=== PATIENT | male | born 1990 | race Caucasian/White ===

== ENCOUNTER → 2016-12-16 | Outpatient (CLI) | payer OTHER | END | disposition home or self-care (01) | LOC: C.LAB 01:36 | DX: Z02.83 Encounter for blood-alcohol and blood-drug test (principal) ==

== ENCOUNTER 2018-10-25 07:08 | Inpatient (IN) ==
[2018-10-25 07:49] LABS: Basophils # (auto) 0.02 K/uL (0-0.2); Basophils % (auto) 0.3 %; Eosinophils % (auto) 1.5 %; Hematocrit (blood only) 44.9 % (42-52); Immature Granulocytes # (auto) 0.01 K/uL (0.00-0.02); Immature Granulocytes % (auto) 0.1 %; Lymphocytes # (auto) 1.76 K/uL (1.2-3.4); Lymphocytes % (auto) 25.6 %; Mean Corpuscular Hgb Conc 35.6 g/dL (32-36); Mean Corpuscular Volume 91.1 fL (80-100); Mean Platelet Volume 9.6 fL (7.4-10.4); Monocytes # (auto) 1.04 K/uL (0.11-0.59); Monocytes % (auto) 15.1 %; Neutrophils # (auto) 3.95 K/uL (1.4-6.5); Neutrophils % (auto) 57.4 %; Platelet Count 213 K/uL (130-400); RDW Coefficient of Variation 11.8 % (11.5-14.5); RDW Standard Deviation 39.5 fL (36.4-46.3); Red Blood Count 4.93 M/uL (4.7-6.1); White Blood Count 6.88 K/uL (4.8-10.8)
[2018-10-25 08:07] LABS: Albumin Level 4.1 gm/dl (3.4-5.0); BUN Creatinine Ratio 11.7 (10-20); Calcium 9.5 mg/dl (8.5-10.1); Creatinine Clr Calc Pharmacy 91.4 ml/min; Est GFR (African American) 84.5; Est GFR (Non-African American) 72.9; Magnesium 2.2 mg/dl (1.8-2.4)
[2018-10-25 08:10] LABS: Albumin Globulin Ratio 1.3 (0.9-2); Bilirubin,Total 0.5 mg/dl (0.2-1); Globulin 3.1 gm/dl (2.5-4.0); Total Protein 7.2 gm/dl (6.4-8.2)
[2018-10-25 08:22] LABS: Acetaminophen < 2 ug/ml (10-30)
[2018-10-25 08:23] LABS: Salicylate < 1.7 mg/dl (2.8-20)
[2018-10-25 08:51] LABS: Amphetamines+Metham, Urine Neg (Neg); Barbiturates, Urine Neg (Neg); Benzodiazepine, Urine Neg (Neg); Cocaine, Urine Neg (Neg); MDMA (Ecstacy), Urine Neg (Neg); Methadone, Urine Neg (Neg); Opiate, Urine Neg (Neg); Phencyclidine, Urine Neg (Neg)
--- NOTE | 2018-10-25 09:23 | Emergency Department Note ---
Entered by Kerline Stroud acting as a scribe for History of Present Illness General Chief complaint: Overdose (Accidental) Source: patient History of Present Illness Onset (ago): hour(s) 1 Location: head Pain Consistency: + other (episode) Quality: + other (accidental drug overdose) Relieved By: not by other (vomiting) Associated symptoms: + denies other symptoms (tremor, unusual sensations) The patient is a 28 year old male that is presenting to the Emergency Room with complaints of an episode of a drug overdose that occurred around 0630 this morning. The patient reports that he took around 20 150mg tablets of Wellbutrin this morning by accident. He states that he thought he was taking his vitamins as he keeps them in old prescription bottles and he was not wearing his glasses at the time. He states that he attempted to vomit after noticing his mistake but did not see any of the Wellbutrin in his vomit. He notes that he also took Vyvanse but was able to throw those up after taking them. He denies taking any Tylenol or Advil this morning. He denies any tremors or unusual sensations. He reports that he started the Wellbutrin about 1 week ago due to his history of PTSD and ADHD. He denies that he was trying to hurt himself. Home Medications Home Medications Medication Instructions Recorded Confirmed Type bupropion HCl [Wellbutrin XL] 150 mg PO QAM 10/25/18 10/25/18 History calcium carbonate [Calcium 500] 500 mg PO QAM 10/25/18 10/25/18 History cholecalciferol (vitamin D3) 0 unit PO QAM 10/25/18 10/25/18 History [Vitamin D3] lisdexamfetamine [Vyvanse] 20 mg PO QAM 10/25/18 10/25/18 History multivitamin 1 tab PO QAM 10/25/18 10/25/18 History Allergies Allergy/AdvReac Type Severity Reaction Status Date / Time No Known Allergies Allergy Unverified 10/25/18 07:59 Past Med/Surg History Medical History ADHD (Chronic) PTSD (post-traumatic stress disorder) (Chronic) No significant past medical history Family History Other Family history non-contributory Social History Preferred Language: Croatian Communication Ability: Effective Square Cutter Required: No Beliefs That Will Affect Care: None marital status: Current Living Situation: Spouse Current Living Situation Comment: states current occupational status: employed and student Other Information That Helps Us Care for You: No Feels Safe at Home: Yes Safety Concerns: Feels Safe At This Time Smoking Status: Never smoker Do You Dip or Chew Tobacco: No Second Hand Exposure: No Tobacco Cessation Education Requested by Patient: No Hx Alcohol Use: Yes Alcohol type: beer Hx Substance Use: Yes substance use type: marijuana Last Used Substance: Unknown Review of Systems See HPI for pertinent positives & negatives. and A total of 10 systems reviewed and were otherwise negative Physical Exam Vital Signs Vital Signs - 24 hr 10/25/18 07:14 10/25/18 07:40 10/25/18 08:18 Temperature 36.7 C Temperature Source Oral Sepsis Recent Fever Within 48 Hours No Sepsis New/Unexplained Change in Mental Status No Sepsis Action Taken by Nursing No Action Required Pulse Rate 70 Pulse Rate [Apical] 60 Pulse Rhythm [Apical] Pulse Strength [Apical] Respiratory Rate 16 16 Respiratory Effort / Characteristics Respiratory Depth Respiratory Pattern Blood Pressure 160/76 H Blood Pressure [Right Arm] 140/79 Blood Pressure Mean 104 Blood Pressure Mean [Right Arm] 99 Blood Pressure Position [Right Arm] Pulse Oximetry 98 98 99 Oxygen Delivery Method Room Air Room Air Room Air 10/25/18 10:17 10/25/18 11:44 Temperature Temperature Source Sepsis Recent Fever Within 48 Hours Sepsis New/Unexplained Change in Mental Status Sepsis Action Taken by Nursing Pulse Rate Pulse Rate [Apical] 91 H 108 H Pulse Rhythm [Apical] Regular Pulse Strength [Apical] Normal Respiratory Rate 16 20 Respiratory Effort / Characteristics Non-Labored Spontaneous Respiratory Depth Normal Respiratory Pattern Regular Blood Pressure Blood Pressure [Right Arm] 163/106 H 164/99 H Blood Pressure Mean Blood Pressure Mean [Right Arm] 125 120 Blood Pressure Position [Right Arm] Lying Pulse Oximetry 98 97 Oxygen Delivery Method Room Air Room Air GENERAL: Awake, alert, well-appearing, in no distress HENT: Normocephalic, atraumatic. Oropharynx unremarkable. EYES: Normal conjunctiva. Sclera non-icteric. PERRL. NECK: Supple. No nuchal rigidity. RESPIRATORY: Clear to auscultation. No wheezes. Normal respiratory effort. CARDIAC: Normal rate. Normal rhythm. Extremities warm and well perfused. GI: Soft, non-distended. No tenderness to palpation. RECTAL: Deferred. MUSCULOSKELETAL: Atraumatic. Chest examination reveals no tenderness. LOWER EXTREMITIES: Calves are equal size bilaterally and non-tender. No edema NEURO: Normal sensorium. No sensory or motor deficits noted. No facial droop. Negative clonus. SKIN: Warm and dry. No rash or jaundice noted. Course 0715:The patient was evaluated in room A03. A complete history and physical examination was performed. 0812: I discussed the patient's case with the Poison Control Center who recommen ded that the patient be kept for observation for 14 hours. 0840: I updated the patient on his current lab results and discussed staying for observation. I counseled the patient on the risks of leaving AMA. The patient stated that he would consider his options. 0922: After re-evaluation and discussion of his payment status, the patient agrees to stay for an observation period. 0935: I reviewed the patient's case with BARBRA Hansen, who will evaluate the patient for further management. 0940: Upon reevaluation, the patient is resting comfortably. I discussed laboratory and radiographic results with the patient. He verbalized agreement of the treatment plan. The patient will be evaluated for further management and care. Consultations Consultation #1: I reviewed the patient's case with BARBRA Hansen, who will e valuate the patient for further management. Time: 09:35 Medical Decision Making Differential Diagnosis Differential diagnosis: Etiologies such as toxicologic, infection, hypoglycemia, electrolyte abnor malities, cardiac sources, intracerebral event, neurologic, as well as others were entertained. Medical Records Attestation: I reviewed the patient's medical records. Home Medications Current Medication List: was personally reviewed by me Laboratory Data Attestation: I reviewed the patient's lab results. Result diagrams: 10/25/18 13:49 10/25/18 13:49 Lab Results 10/25/18 10/25/18 10/25/18 Range/Units 07:34 07:34 07:34 WBC 6.88 (4.8-10.8) K/uL RBC 4.93 (4.7-6.1) M/uL Hgb 16.0 (14.0-18.0) g/dL Hct 44.9 (42-52) % MCV 91.1 (80-100) fL MCH 32.5 (25-34) pg MCHC 35.6 (32-36) g/dL RDW Std Deviation 39.5 (36.4-46.3) fL RDW Coeff of Fidencio 11.8 (11.5-14.5) % Plt Count 213 (130-400) K/uL MPV 9.6 (7.4-10.4) fL Immature Gran % (Auto) 0.1 % Neut % (Auto) 57.4 % Lymph % (Auto) 25.6 % Emery % (Auto) 15.1 % Eos % (Auto) 1.5 % Baso % (Auto) 0.3 % Immature Gran # (Auto) 0.01 (0.00-0.02) K/uL Neut # (Auto) 3.95 (1.4-6.5) K/uL Lymph # (Auto) 1.76 (1.2-3.4) K/uL Emery # (Auto) 1.04 H (0.11-0.59) K/uL Eos # (Auto) 0.10 (0-0.5) K/uL Baso # (Auto) 0.02 (0-0.2) K/uL Sodium 140 (136-145) mmol/L Potassium 4.0 (3.5-5.1) mmol/L Chloride 106 (98-107) mmol/L Carbon Dioxide 28 (21-32) mmol/L Anion Gap 6.0 (3-11) BUN 15 (7-18) mg/dl Creatinine 1.32 (0.6-1.4) mg/dl Est Cr Clr Drug Dosing 91.4 ml/min Est GFR ( Amer) 84.5 Est GFR (Non-Af Amer) 72.9 BUN/Creatinine Ratio 11.7 (10-20) Glucose 97 (70-99) mg/dl Calcium 9.5 (8.5-10.1) mg/dl Magnesium 2.2 (1.8-2.4) mg/dl Total Bilirubin 0.5 (0.2-1) mg/dl AST 18 (15-37) U/L ALT 31 (12-78) U/L Alkaline Phosphatase 52 (45-117) U/L Total Creatine Kinase 435 H (39-308) U/L Total Protein 7.2 (6.4-8.2) gm/dl Albumin 4.1 (3.4-5.0) gm/dl Globulin 3.1 (2.5-4.0) gm/dl Albumin/Globulin Ratio 1.3 (0.9-2) Salicylates < 1.7 L (2.8-20) mg/dl Urine Opiates Screen (Neg) Ur Methadone, Qual (Neg) Acetaminophen < 2 L (10-30) ug/ml Urine Barbiturates (Neg) Ur Phencyclidine (PCP) (Neg) U Amphetamin/Meth Scrn (Neg) MDMA (Ecstasy) Screen (Neg) U Benzodiazepines Scrn (Neg) Ur Cocaine Metabolite (Neg) U Marijuana (THC) Screen (Neg) Ethyl Alcohol mg/dL (0-3) mg/dl 10/25/18 10/25/18 10/25/18 Range/Units 07:34 08:15 13:49 WBC 8.23 (4.8-10.8) K/uL RBC 5.00 (4.7-6.1) M/uL Hgb 16.2 (14.0-18.0) g/dL Hct 45.2 (42-52) % MCV 90.4 (80-100) fL MCH 32.4 (25-34) pg MCHC 35.8 (32-36) g/dL RDW Std Deviation 38.9 (36.4-46.3) fL RDW Coeff of Fidencio 11.8 (11.5-14.5) % Plt Count 261 (130-400) K/uL MPV 9.9 (7.4-10.4) fL Immature Gran % (Auto) 0.2 % Neut % (Auto) 70.2 % Lymph % (Auto) 15.6 % Emery % (Auto) 13.5 % Eos % (Auto) 0.1 % Baso % (Auto) 0.4 % Immature Gran # (Auto) 0.02 (0.00-0.02) K/uL Neut # (Auto) 5.78 (1.4-6.5) K/uL Lymph # (Auto) 1.28 (1.2-3.4) K/uL Emery # (Auto) 1.11 H (0.11-0.59) K/uL Eos # (Auto) 0.01 (0-0.5) K/uL Baso # (Auto) 0.03 (0-0.2) K/uL Sodium (136-145) mmol/L Potassium (3.5-5.1) mmol/L Chloride (98-107) mmol/L Carbon Dioxide (21-32) mmol/L Anion Gap (3-11) BUN (7-18) mg/dl Creatinine (0.6-1.4) mg/dl Est Cr Clr Drug Dosing ml/min Est GFR ( Amer) Est GFR (Non-Af Amer) BUN/Creatinine Ratio (10-20) Glucose (70-99) mg/dl Calcium (8.5-10.1) mg/dl Magnesium (1.8-2.4) mg/dl Total Bilirubin (0.2-1) mg/dl AST (15-37) U/L ALT (12-78) U/L Alkaline Phosphatase (45-117) U/L Total Creatine Kinase (39-308) U/L Total Protein (6.4-8.2) gm/dl Albumin (3.4-5.0) gm/dl Globulin (2.5-4.0) gm/dl Albumin/Globulin Ratio (0.9-2) Salicylates (2.8-20) mg/dl Urine Opiates Screen Neg (Neg) Ur Methadone, Qual Neg (Neg) Acetaminophen (10-30) ug/ml Urine Barbiturates Neg (Neg) Ur Phencyclidine (PCP) Neg (Neg) U Amphetamin/Meth Scrn Neg (Neg) MDMA (Ecstasy) Screen Neg (Neg) U Benzodiazepines Scrn Neg (Neg) Ur Cocaine Metabolite Neg (Neg) U Marijuana (THC) Screen Pos H (Neg) Ethyl Alcohol mg/dL < 3.0 (0-3) mg/dl 10/25/18 Range/Units 13:49 WBC (4.8-10.8) K/uL RBC (4.7-6.1) M/uL Hgb (14.0-18.0) g/dL Hct (42-52) % MCV (80-100) fL MCH (25-34) pg MCHC (32-36) g/dL RDW Std Deviation (36.4-46.3) fL RDW Coeff of Fidencio (11.5-14.5) % Plt Count (130-400) K/uL MPV (7.4-10.4) fL Immature Gran % (Auto) % Neut % (Auto) % Lymph % (Auto) % Emery % (Auto) % Eos % (Auto) % Baso % (Auto) % Immature Gran # (Auto) (0.00-0.02) K/uL Neut # (Auto) (1.4-6.5) K/uL Lymph # (Auto) (1.2-3.4) K/uL Emery # (Auto) (0.11-0.59) K/uL Eos # (Auto) (0-0.5) K/uL Baso # (Auto) (0-0.2) K/uL Sodium 138 (136-145) mmol/L Potassium 3.7 (3.5-5.1) mmol/L Chloride 107 (98-107) mmol/L Carbon Dioxide 26 (21-32) mmol/L Anion Gap 5.0 (3-11) BUN 12 (7-18) mg/dl Creatinine 1.44 H (0.6-1.4) mg/dl Est Cr Clr Drug Dosing 83.8 ml/min Est GFR ( Amer) 76.0 Est GFR (Non-Af Amer) 65.6 BUN/Creatinine Ratio 8.6 L (10-20) Glucose 103 H (70-99) mg/dl Calcium 9.3 (8.5-10.1) mg/dl Magnesium (1.8-2.4) mg/dl Total Bilirubin 0.6 (0.2-1) mg/dl AST 18 (15-37) U/L ALT 32 (12-78) U/L Alkaline Phosphatase 56 (45-117) U/L Total Creatine Kinase (39-308) U/L Total Protein 8.0 (6.4-8.2) gm/dl Albumin 4.5 (3.4-5.0) gm/dl Globulin 3.5 (2.5-4.0) gm/dl Albumin/Globulin Ratio 1.3 (0.9-2) Salicylates (2.8-20) mg/dl Urine Opiates Screen (Neg) Ur Methadone, Qual (Neg) Acetaminophen (10-30) ug/ml Urine Barbiturates (Neg) Ur Phencyclidine (PCP) (Neg) U Amphetamin/Meth Scrn (Neg) MDMA (Ecstasy) Screen (Neg) U Benzodiazepines Scrn (Neg) Ur Cocaine Metabolite (Neg) U Marijuana (THC) Screen (Neg) Ethyl Alcohol mg/dL (0-3) mg/dl ECG Data Attestation: I personally reviewed and interpreted this ECG as follows: Indication: toxicologic Rate (beats per minute): 62 Rhythm: sinus rhythm (with sinus arrhythmia) Findings: + other (no acute interval abnormalities); no PVC, no ST depression, no ST elevation and no acute ischemic change Blood Pressure Blood Pressure Findings: Elevated blood pressure Blood Pressure Disposition: elevated BP felt to be situational MDM Narrative Patient is a 28-year-old gentleman reports a history of anxiety depression was getting up and getting ready for the day did have his glasses on yet and states he was taking his morning medications/vitamins. Normally he takes several vitamins and restarted last week on bupropion 150. States he only heaves medicine and a prescription bottle and seems to have gotten them confused and took he believes up to about 20 of the bupropion from bupropion bottle instead of the pre-sorted bottle. States he is otherwise asymptomatic at this time. Denies any HI or SI with this. States afterwards he did try to throw up and threw up a bit and was able to throw up his Vyvanse pill that he also took for sure. Denies any other coingestants of significance such as aspirin, Tylenol, or alcohol. Exam is reassuring at this time. Basic toxicology studies were sent including alcohol level, Tylenol level, salicylate level as well as EKG. Discussed with the Poison Control Center. Again does not report and do not have acute suspicion at this point patient was telling me that this was a suicide attempt or that he has suicidal tendencies. Poison control recommends given the delayed onset of some Wellbutrin overdose is a 24-hour observation. No other evidence of significant toxicities. Discussed with the patient who again continues to deny significant symptoms at this time. Discussed the risks of the overdose and possible delaying significant seizures. Patient states he really did not want to stay but was considering the options. Discussed that if he left it would be AGAINST MEDICAL ADVICE. Again I do not see any concerning symptoms or signs at this time for mental health hold or involuntary commitment. Case management discussed with him payment status. On reevaluation short time later patient states he was agreeable to stay and just felt a little bit off. Discussed with hospitalist for admission. Impression & Plan Drug overdose Discharge Plan Visit Data *Final* Discharge Date/Time: 10/25/18 11:13 Chief Complaint: Overdose (Accidental) ED Provider: Jean-Claude Warner Discharge Problem: Drug overdose Patient Disposition: Admitted As Inpatient Discharge Instructions Interventions: ED Discharge Assessment Last Done: 10/25/18 11:13 Discharge Problem: Drug overdose Qualifiers: Encounter type: initial encounter Injury intent: accidental or unintentional Qualified Code(s): T50.901A - Poisoning by unspecified drugs, medicaments and biological substances, accidental (unintentional), initial encounter The scribe's documentation has been prepared under my direction and personally reviewed by me in its entirety. I confirm that the note above accurately reflects all work, treatment, procedures, and medical decision making performed by me.
[2018-10-25] MEDS ORDERED: ACETAMINOPHEN 325 MG TAB PO PRN (13:31)
[2018-10-25] MEDS ORDERED: HALOPERIDOL LACTATE 5 MG/ML 1 ML VIAL IM PRN ×2 (13:31→21:32)
[2018-10-25] MEDS ORDERED: LORazepam 1 MG/2 ML VIAL IV PRN (14:01)
[2018-10-25 14:15] LABS: Basophils # (auto) 0.03 K/uL (0-0.2); Basophils % (auto) 0.4 %; Eosinophils # (auto) 0.01 K/uL (0-0.5); Eosinophils % (auto) 0.1 %; Hematocrit (blood only) 45.2 % (42-52); Hemoglobin 16.2 g/dL (14.0-18.0); Immature Granulocytes # (auto) 0.02 K/uL (0.00-0.02); Immature Granulocytes % (auto) 0.2 %; Lymphocytes # (auto) 1.28 K/uL (1.2-3.4); Lymphocytes % (auto) 15.6 %; Mean Corpuscular Hgb Conc 35.8 g/dL (32-36); Mean Corpuscular Volume 90.4 fL (80-100); Mean Platelet Volume 9.9 fL (7.4-10.4); Monocytes # (auto) 1.11 K/uL (0.11-0.59); Monocytes % (auto) 13.5 %; Neutrophils # (auto) 5.78 K/uL (1.4-6.5); Neutrophils % (auto) 70.2 %; Platelet Count 261 K/uL (130-400); RDW Coefficient of Variation 11.8 % (11.5-14.5); RDW Standard Deviation 38.9 fL (36.4-46.3); White Blood Count 8.23 K/uL (4.8-10.8)
[2018-10-25 14:31] LABS: Albumin Globulin Ratio 1.3 (0.9-2); Albumin Level 4.5 gm/dl (3.4-5.0); BUN Creatinine Ratio 8.6 (10-20); Bilirubin,Total 0.6 mg/dl (0.2-1); Calcium 9.3 mg/dl (8.5-10.1); Creatinine Clr Calc Pharmacy 83.8 ml/min; Est GFR (Non-African American) 65.6; Globulin 3.5 gm/dl (2.5-4.0); Potassium 3.7 mmol/L (3.5-5.1)
--- NOTE | 2018-10-25 15:05 | History & Physical Report ---
Date of Service October 25, 2018 Assessment & Plan (1) Drug overdose: 28-year-old male with past medical history of ADHD, PTSD, prior psych hospitalization, [facility] presents with overdose on Wellbutrin took approximately 20 150 mg pills at once this morning question whether intentional suicide attempt versus accidental overdose. #Drug Overdose (wellbutrin) Took approximately 20 150 mg pills of Wellbutrin. unclear if this was intentional versus unintentional. Patient states is unintentional but I have significant doubts about that see HPI for further. -Contacted poison control they are following -Lorazepam 1 make every 4 hours as needed for anxiety and agitation -Phenergan for nausea and vomiting -Haloperidol 5 mg IM for severe agitation, violent behavior, threatening to harm staff or himself -Watch for signs and symptoms of seizure development as this has been associated with Wellbutrin overdose -Patient also is prescribed Vyvanse, and takes regular thermogenic's. He perseverates on having an elevated heart rate for "fitness purposes" -Repeat EKG in the morning -Daily BMP/CBC #Suicide attempt Patient stated to me this was a suicide attempt, however during questioning by other physicians he states it was a subconscious suicide attempt or denies it completely. Given his current state and altered mental status we must treat this is a genuine attempt until proven otherwise. The patient is familiar with the psychiatric system and has a reasonably high degree of intelligence, I am concerned he knows what to say and what not to say. -Suicide precautions in place -One-to-one for monitoring -Psych consult placed appreciate recommendations -302 on chart will not execute and less patient attempts to leave AMA #History of prior psych hospitalization Diagnosis is unclear, however it appears as if he was discharged on an antipsychotic of some form. Patient does not remember the name of it. Working theory is Risperdal versus quetiapine. -Patient frequently consumes marijuana, potentially may have consumed synthetic marijuana -Carries diagnosis of PTSD -Uses lots of stimulants, Vyvanse, thermogenic's, Wellbutrin #ADHD Takes Vyvanse daily -Hold Vyvanse #Multivitamin supplementation Hold all home multivitamins History of Present Illness Primary Care Provider: NO PCP 28-year-old male with past medical history of ADHD, PTSD, prior psych hospitalization, [facility] presents with overdose on Wellbutrin took approximately 20 150 mg pills at once this morning question whether intentional suicide attempt versus accidental overdose.the overdose occurred approximately 630 this morning. The patient states that he woke up and thought he was taking his vitamin pills but took 20 Wellbutrin instead. Per the patient he keeps his vitamins in his recycled pill containers. Upon further questioning patient states he takes approximately 4 different vitamins per day. When I questioned him if he take 4 vitamins per day why would you think 20 pills was for vitamins are the different seems different sizes. The patient responded well may be I was trying to kill myself. Patient states he made himself vomit after the overdose and only saw his Vyvanse in his vomitus, he did not notice any Wellbutrin. At which point he contacted his "lady friend" who lives in [place] she was concerned for him and advised to seek medical attention.patient reports he started Wellbutrin approximately 1 week ago due to history of a ADHD and PTSD. It highly suspicious that the patient took 20 pills in his mouth did not know differences in pill sizes, pill shape, pill taste, other differences. Especially given that he reports taking these supplements on a daily basis. Of note he endorses also takes Vyvanse Wellbutrin and a thermogenic on a daily basis. Denies taking any Tylenol or Advil this morning, tremors or unusual sensations. Perseverating on leaving [facility] to attend his medial neurological exam this afternoon.of note patient has recently stopped taking the medication prescribed him during his inpatient psych psychiatric stay, the patient could not remember the name of the medicine but said he was supposed to take it at night endorsed Risfelidal sounded familiar. several acute concerns at present listed below -As noted in my HPI the patient had mentioned to me that this was in fact a suicide attempt, given the fact that he had a previous psych hospitalization, I think he knows what to say and what not to say to prevent a 302 from being placed against him -Patient has a prior psych hospitalization when questioned about this he reported that he was afraid his family was trying to "eat him". The patient flew with his mother to [place] to visit distant relatives and became very paranoid. He then "went out into the wilderness" to hide from them. Upon his return his mom petitioned a 302 because she felt he was a danger to himself and others. We attempted to elicit the diagnosis to the psychiatrist gave him at that time however the patient was unable to discuss this further. -Patient refuses to allow us to contact family members and/or friends regarding his psychiatric condition. It would be most helpful from a clinical standpoint so we can determine whether his cognitive function at present is baseline or an exacerbation of an underlying psychiatric disease -Patient was brought to tears when discussing his brother states his brother lives in a dirty house, he is concerned for him, he visits him frequently, he does not have friends, ETC. I am concerned there patient is referring to himself when he is referring to his brother, essentially as a defensive mechanism. -Has a history of service, he describes this time as the best and worst time of his life, carries a supposed PTSD diagnosis from this -Patient was perseverating on his heart rate says he frequently monitors that using an activity watch when questioned why he said "because I am athletic and need to maintain an elevated heart rate" given his use of Vyvanse, thermogenic's, and Wellbutrin I am concerned that he is obsessing about having an elevated heart rate for "fitness purposes" but that he may be doing significant damage to his heart -His thought process is not clear or logical and very tangential. -When asked to do serial sevens he kept on getting distracted and was having difficulty concentrating, this occurred while he was discussing several other aspects of his current diagnosis. -When questioned if the patient wanted to attempt suicide, he responded "well everybody thinks about that, right?" When asked if he had a plan he said yes and then changed his mind. -The patient endorses minimal social contact. -During our conversation the patient became frustrated he is a large individual and was becoming visibly tense, flexing his muscles, I did feel concerned that he would lash out at me nursing please be careful. 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[facility] for [facility] 302 form is placed on his chart execute if necessary for now the patient is agreeable to stay Allergies Allergy/AdvReac Type Severity Reaction Status Date / Time No Known Allergies Allergy Unverified 10/25/18 07:59 Home Medications Home Medications Medication Instructions Recorded Confirmed Type bupropion HCl [Wellbutrin XL] 150 mg PO QAM 10/25/18 10/25/18 History calcium carbonate [Calcium 500] 500 mg PO QAM 10/25/18 10/25/18 History cholecalciferol (vitamin D3) 0 unit PO QAM 10/25/18 10/25/18 History [Vitamin D3] lisdexamfetamine [Vyvanse] 20 mg PO QAM 10/25/18 10/25/18 History multivitamin 1 tab PO QAM 10/25/18 10/25/18 History thermogenic 10/25/18 History Past Med/Surg History Medical History ADHD (Chronic) PTSD (post-traumatic stress disorder) (Chronic) History of psychiatric hospitalization No significant past medical history Family History Other Family history non-contributory Social History Preferred Language: Slovenian Communication Ability: Effective Ice Cutter Required: No Beliefs That Will Affect Care: None marital status: Current Living Situation: Spouse Current Living Situation Comment: states current occupational status: employed and student Other Information That Helps Us Care for You: No Feels Safe at Home: Yes Safety Concerns: Feels Safe At This Time Smoking Status: Never smoker Do You Dip or Chew Tobacco: No Second Hand Exposure: No Tobacco Cessation Education Requested by Patient: No Hx Alcohol Use: Yes Alcohol type: beer Hx Substance Use: Yes substance use type: marijuana Last Used Substance: Unknown Physical Exam Physical Exam: General: 28-year-old male in distress visibly showing signs of agitation, anxiety, fearfulness Eyes: EOMI Neck: Trachea midline, normal to visual inspection, negative JVD Chest: Clear to auscultation bilaterally Cardiac: Normal rate and rhythm, no murmurs rubs or gallops, normal S1/S2 GI: Deferred MSK: Moves all extremities Skin: Warm dry and intact Neuro: Sensorimotor intact, tremor Psych: Appearance: Well-dressed, well-groomed, body posture tense, Behavior: Inappropriate, perseverating on upcoming exam, wanting to leave not sharing all of the details with physicians, uncooperative Speech: Flat monotone no prosody not particularly pressured Mood: I am okay I want to go to my exam Affect: Scared, frightened, threatening/threatened, not congruent, nervous Thought process: Tangential disordered not logical, patient kept on jumping from topic to topic would perseverate about keeping his heart rate elevated, upcoming exam, his brother, his family wanting to eat him Results & Data Vital Signs (Past 12 Hours) Vital Signs Temp Pulse Pulse Resp BP BP Pulse Ox 10/25/18 11:44 108 H 20 164/99 H 97 10/25/18 10:17 91 H 16 163/106 H 98 10/25/18 08:18 60 16 140/79 99 10/25/18 07:40 98 10/25/18 07:14 36.7 C 70 16 160/76 H 98 Laboratory Results 10/25/18 10/25/18 10/25/18 Range/Units 13:49 13:49 08:15 WBC 8.23 (4.8-10.8) K/uL RBC 5.00 (4.7-6.1) M/uL Hgb 16.2 (14.0-18.0) g/dL Hct 45.2 (42-52) % MCV 90.4 (80-100) fL MCH 32.4 (25-34) pg MCHC 35.8 (32-36) g/dL RDW Std Deviation 38.9 (36.4-46.3) fL RDW Coeff of Fidencio 11.8 (11.5-14.5) % Plt Count 261 (130-400) K/uL MPV 9.9 (7.4-10.4) fL Immature Gran % (Auto) 0.2 % Neut % (Auto) 70.2 % Lymph % (Auto) 15.6 % Morehouse % (Auto) 13.5 % Eos % (Auto) 0.1 % Baso % (Auto) 0.4 % Immature Gran # (Auto) 0.02 (0.00-0.02) K/uL Neut # (Auto) 5.78 (1.4-6.5) K/uL Lymph # (Auto) 1.28 (1.2-3.4) K/uL Morehouse # (Auto) 1.11 H (0.11-0.59) K/uL Eos # (Auto) 0.01 (0-0.5) K/uL Baso # (Auto) 0.03 (0-0.2) K/uL Sodium 138 (136-145) mmol/L Potassium 3.7 (3.5-5.1) mmol/L Chloride 107 (98-107) mmol/L Carbon Dioxide 26 (21-32) mmol/L Anion Gap 5.0 (3-11) BUN 12 (7-18) mg/dl Creatinine 1.44 H (0.6-1.4) mg/dl Est Cr Clr Drug Dosing 83.8 ml/min Est GFR ( Amer) 76.0 Est GFR (Non-Af Amer) 65.6 BUN/Creatinine Ratio 8.6 L (10-20) Glucose 103 H (70-99) mg/dl Calcium 9.3 (8.5-10.1) mg/dl Magnesium (1.8-2.4) mg/dl Total Bilirubin 0.6 (0.2-1) mg/dl AST 18 (15-37) U/L ALT 32 (12-78) U/L Alkaline Phosphatase 56 (45-117) U/L Total Creatine Kinase (39-308) U/L Total Protein 8.0 (6.4-8.2) gm/dl Albumin 4.5 (3.4-5.0) gm/dl Globulin 3.5 (2.5-4.0) gm/dl Albumin/Globulin Ratio 1.3 (0.9-2) Salicylates (2.8-20) mg/dl Urine Opiates Screen (Neg) Ur Methadone, Qual (Neg) Acetaminophen (10-30) ug/ml Urine Barbiturates (Neg) Ur Phencyclidine (PCP) (Neg) U Amphetamin/Meth Scrn (Neg) MDMA (Ecstasy) Screen (Neg) U Benzodiazepines Scrn (Neg) Ur Cocaine Metabolite (Neg) U Marijuana (THC) Screen (Neg) U Marijuana THC Carboxy Pending Ethyl Alcohol mg/dL (0-3) mg/dl 10/25/18 10/25/18 10/25/18 Range/Units 08:15 07:34 07:34 WBC (4.8-10.8) K/uL RBC (4.7-6.1) M/uL Hgb (14.0-18.0) g/dL Hct (42-52) % MCV (80-100) fL MCH (25-34) pg MCHC (32-36) g/dL RDW Std Deviation (36.4-46.3) fL RDW Coeff of Fidencio (11.5-14.5) % Plt Count (130-400) K/uL MPV (7.4-10.4) fL Immature Gran % (Auto) % Neut % (Auto) % Lymph % (Auto) % Morehouse % (Auto) % Eos % (Auto) % Baso % (Auto) % Immature Gran # (Auto) (0.00-0.02) K/uL Neut # (Auto) (1.4-6.5) K/uL Lymph # (Auto) (1.2-3.4) K/uL Morehouse # (Auto) (0.11-0.59) K/uL Eos # (Auto) (0-0.5) K/uL Baso # (Auto) (0-0.2) K/uL Sodium (136-145) mmol/L Potassium (3.5-5.1) mmol/L Chloride (98-107) mmol/L Carbon Dioxide (21-32) mmol/L Anion Gap (3-11) BUN (7-18) mg/dl Creatinine (0.6-1.4) mg/dl Est Cr Clr Drug Dosing ml/min Est GFR ( Amer) Est GFR (Non-Af Amer) BUN/Creatinine Ratio (10-20) Glucose (70-99) mg/dl Calcium (8.5-10.1) mg/dl Magnesium (1.8-2.4) mg/dl Total Bilirubin (0.2-1) mg/dl AST (15-37) U/L ALT (12-78) U/L Alkaline Phosphatase (45-117) U/L Total Creatine Kinase (39-308) U/L Total Protein (6.4-8.2) gm/dl Albumin (3.4-5.0) gm/dl Globulin (2.5-4.0) gm/dl Albumin/Globulin Ratio (0.9-2) Salicylates < 1.7 L (2.8-20) mg/dl Urine Opiates Screen Neg (Neg) Ur Methadone, Qual Neg (Neg) Acetaminophen < 2 L (10-30) ug/ml Urine Barbiturates Neg (Neg) Ur Phencyclidine (PCP) Neg (Neg) U Amphetamin/Meth Scrn Neg (Neg) MDMA (Ecstasy) Screen Neg (Neg) U Benzodiazepines Scrn Neg (Neg) Ur Cocaine Metabolite Neg (Neg) U Marijuana (THC) Screen Pos H (Neg) U Marijuana THC Carboxy Ethyl Alcohol mg/dL < 3.0 (0-3) mg/dl 10/25/18 10/25/18 Range/Units 07:34 07:34 WBC 6.88 (4.8-10.8) K/uL RBC 4.93 (4.7-6.1) M/uL Hgb 16.0 (14.0-18.0) g/dL Hct 44.9 (42-52) % MCV 91.1 (80-100) fL MCH 32.5 (25-34) pg MCHC 35.6 (32-36) g/dL RDW Std Deviation 39.5 (36.4-46.3) fL RDW Coeff of Fidencio 11.8 (11.5-14.5) % Plt Count 213 (130-400) K/uL MPV 9.6 (7.4-10.4) fL Immature Gran % (Auto) 0.1 % Neut % (Auto) 57.4 % Lymph % (Auto) 25.6 % Morehouse % (Auto) 15.1 % Eos % (Auto) 1.5 % Baso % (Auto) 0.3 % Immature Gran # (Auto) 0.01 (0.00-0.02) K/uL Neut # (Auto) 3.95 (1.4-6.5) K/uL Lymph # (Auto) 1.76 (1.2-3.4) K/uL Morehouse # (Auto) 1.04 H (0.11-0.59) K/uL Eos # (Auto) 0.10 (0-0.5) K/uL Baso # (Auto) 0.02 (0-0.2) K/uL Sodium 140 (136-145) mmol/L Potassium 4.0 (3.5-5.1) mmol/L Chloride 106 (98-107) mmol/L Carbon Dioxide 28 (21-32) mmol/L Anion Gap 6.0 (3-11) BUN 15 (7-18) mg/dl Creatinine 1.32 (0.6-1.4) mg/dl Est Cr Clr Drug Dosing 91.4 ml/min Est GFR ( Amer) 84.5 Est GFR (Non-Af Amer) 72.9 BUN/Creatinine Ratio 11.7 (10-20) Glucose 97 (70-99) mg/dl Calcium 9.5 (8.5-10.1) mg/dl Magnesium 2.2 (1.8-2.4) mg/dl Total Bilirubin 0.5 (0.2-1) mg/dl AST 18 (15-37) U/L ALT 31 (12-78) U/L Alkaline Phosphatase 52 (45-117) U/L Total Creatine Kinase 435 H (39-308) U/L Total Protein 7.2 (6.4-8.2) gm/dl Albumin 4.1 (3.4-5.0) gm/dl Globulin 3.1 (2.5-4.0) gm/dl Albumin/Globulin Ratio 1.3 (0.9-2) Salicylates (2.8-20) mg/dl Urine Opiates Screen (Neg) Ur Methadone, Qual (Neg) Acetaminophen (10-30) ug/ml Urine Barbiturates (Neg) Ur Phencyclidine (PCP) (Neg) U Amphetamin/Meth Scrn (Neg) MDMA (Ecstasy) Screen (Neg) U Benzodiazepines Scrn (Neg) Ur Cocaine Metabolite (Neg) U Marijuana (THC) Screen (Neg) U Marijuana THC Carboxy Ethyl Alcohol mg/dL (0-3) mg/dl Medications Administered Current Inpatient Medications Acetaminophen (Tylenol) 650 mg PO Q4H PRN PRN Reason: Pain or Fever Stop: 11/24/18 13:30 Haloperidol Lactate (Haldol) 5 mg IM PRN PRN PRN Reason: Anxiety/Agitation Stop: 11/24/18 13:30 Lorazepam (Ativan) 1 mg in 2 mls @ 2 mls/min IV Q4H PRN PRN Reason: Agitation Stop: 11/24/18 14:00 Code Status & VTE Plan Code Status Full Code VTE Prophylaxis Plan VTE Prophylaxis will be ordered: No Reason for no VTE drug order: Treatment not indicated (Patient is ambulatory, if prolonged hospital stay will add Lovenox) Reason for no VTE mechanical prophylaxis: Treatment not indicated Supervising Physician Co-Signing Physician Notes I personally examined the patient and verified all hernandes points of history and exam, discussed case, and agree with decision making with Dr Ramirez. Took approximately 20 Wellbutrin this morning. He seems to tell different stories as to exactly why he took it, most of the time saying it was a mistake. However of note he only takes maybe 5 vitamins, noting that he takes 2 multivitamins, 2 vitamin D and some sort of thermal metabolism supplement. Vitals noted, in general he is awake and alert does not appear in physical distress but does appear a bit restless, with a fairly odd thought process. No distress. Breathing is unlabored no accessory muscle use good effort. Skin shows no rashes no pallor or icterus. EKG shows tachycardia but fortunately not a very long QT. Wellbutrin overdose -his motivations are unclear, his somewhat discoordinated thought process as well as shifting stories and incongruities of his stories are concerning as to whether or not there was suicidal intent. 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
[2018-10-25] MEDS ORDERED: PROMETHAZINE HCL 12.5 MG in SODIUM CHLORIDE 0.9% 50 ML IV PRN (17:25)
[2018-10-25] MEDS ORDERED: LORazepam 2 MG/4 ML VIAL IV STA (19:23)
[2018-10-25] MEDS ORDERED: HALOPERIDOL LACTATE 5 MG/ML 1 ML VIAL IV STA (19:23)
[2018-10-25] MEDS ORDERED: ICU PROTOCOL FOR HYPERGLYCEMIA PRN (20:09)
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
[2018-10-25] MEDS: LACTATED RINGER'S 1,000 ML IV SCH (21:14)
[2018-10-25] MEDS ORDERED: LORazepam 2 MG/4 ML VIAL IV PRN (21:32)
[2018-10-25 21:53] LABS: Hepatitis B Surface Antibody Immune
[2018-10-25 22:03] LABS: Hepatitis B Surface Antigen Neg (Neg)
[2018-10-26 05:23] LABS: Albumin Level 3.8 gm/dl (3.4-5.0); BUN Creatinine Ratio 9.4 (10-20); Calcium 8.8 mg/dl (8.5-10.1); Creatinine Clr Calc Pharmacy 79.4 ml/min; Est GFR (African American) 71.2; Est GFR (Non-African American) 61.5; Potassium 3.2 mmol/L (3.5-5.1)
[2018-10-26 05:25] LABS: Albumin Globulin Ratio 1.3 (0.9-2); Bilirubin,Total 0.8 mg/dl (0.2-1); Globulin 2.9 gm/dl (2.5-4.0); Total Protein 6.7 gm/dl (6.4-8.2)
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
[2018-10-26] MEDS ORDERED: POTASSIUM CHLORIDE 20 MEQ TABCR PO STA (08:09)
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
[2018-10-26] MEDS: LACTATED RINGER'S 1,000 ML IV SCH (10:06)
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
== END 2018-10-27 12:42 | DRG 918 ==
LOC: ED 07:08 → 2S 07:08 → 1E 19:48 → 4E 10-26 17:54